=== PATIENT | female | born 1945 | race Caucasian/White ===

== ENCOUNTER 2019-03-24 05:55 | Inpatient (IN) ==
[2019-03-24] MEDS ORDERED: ASPIRIN PO ONE (06:06)
[2019-03-24] MEDS ORDERED: SOLU-MEDROL IV ONE (06:08)
[2019-03-24] MEDS ORDERED: CARDIZEM IV ONE (06:08)
[2019-03-24] MEDS ORDERED: ZOFRAN IV ONE (06:08)
[2019-03-24] MEDS ORDERED: DUONEB (A & A) INH ONE (06:08)
[2019-03-24] MEDS ORDERED: NITROGLYCERIN TOP ONE (06:08)
[2019-03-24] MEDS ORDERED: MORPHINE IV ONE (06:08)
--- NOTE | 2019-03-24 06:15 | PROVIDER DOCUMENTATION ---
HPI-Respiratory General - General Stated Complaint: SOB Time Seen by Provider: 03/24/19 05:57 Source: patient, family, EMS Allergies/Adverse Reactions: Patient Allergies Allergy/AdvReac Type Severity Reaction Status Date / Time No Known Allergies Allergy Verified 03/24/19 06:15 Home Medications: Home Medication List Medication Instructions Recorded Confirmed Last Taken Type Alendronate Sodium 1 tab PO DIRECTED 05/29/18 03/24/19 Unknown History Aspirin [Aspir-Low] 1 tab PO DAILY 05/29/18 03/24/19 Unknown History Atorvastatin Calcium [Lipitor] 1 tab PO QPM 05/29/18 03/24/19 Unknown History Calcium Polycarbophil [Fiber] 1,200 mg PO DAILY 05/29/18 03/24/19 Unknown Histo ry Cholecalciferol (Vitamin D3) 1 cap PO DAILY 05/29/18 03/24/19 Unknown History [Vitamin D3] Cinnamon Bark [Cinnamon] 1 cap PO DAILY 05/29/18 03/24/19 Unknown History Diltiazem HCl [Diltiazem 24Hr ER] 1 cap PO QAM 05/29/18 03/24/19 Unknown History Gemfibrozil [Lopid] 2 tab PO BID 05/29/18 03/24/19 Unknown History Losartan [Cozaar] 25 mg PO QPM 05/29/18 03/24/19 Unknown History Meloxicam 1 tab PO DAILY 05/29/18 03/24/19 Unknown History Metformin [Glucophage] 1 tab PO BID 05/29/18 03/24/19 Unknown History Om3/Dha/Epa/Cod Liver Oil/A/D3 1 cap PO DAILY 05/29/18 03/24/19 Unknown History [Cod Liver Oil Softgel] [place]-3 Acid Ethyl Esters 4 cap PO DAILY 05/29/18 03/24/19 Unknown History Pantoprazole [Protonix] 1 tab PO DAILY 05/29/18 03/24/19 Unknown History Trazodone [Desyrel] 1 - 2 tab PO QHS 05/29/18 03/24/19 Unknown History Cyanocobalamin (Vitamin B-12) 1,000 mcg PO DAILY 03/24/19 03/24/19 Unknown History [Vitamin B-12] Pramipexole [Mirapex] 0.25 mg PO DIRECTED 03/24/19 03/24/19 Unknown History Rivaroxaban [Xarelto] 20 mg PO HS 03/24/19 03/24/19 Unknown History Venlafaxine HCl [Venlafaxine HCl 150 mg PO DAILY 03/24/19 03/24/19 Unknown History ER] - History of Present Illness-Resp Nature of Presenting Problem: SOB for the last 1-2 days, gradually getting worse. has been sick for 1 month, seen by her doctor for pneumonia a few weeks ago, then went on a cruise to the [facility]. Over the last day or two she has had increasing shortness of breath, dyspnea on exertion, cough productive of yellow phlegm and orthopnea. No edema or weight gain. Last night she noted a severe, sharp, midsternal chest pain lasting a few minutes then went away. has Afib, on xarelto. Notes that she hit her right forearm on the cruise and suffered a very large hematoma with bruising from the xarelto. 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 States she has afib and COPD, but does not think she has CHF or heart problems. Denies fever/chills. No N/V/D. Quality of Pain: reports: sharp Severity in ED: reports: moderate Onset/Duration: reports: 2 days ago Timing: reports: still present, constant, changing over time, getting worse Context: reports: recent foreign travel, recent URI Exposure: reports: illness exposure Cough Quality/Degree: reports: moderate, productive cough Episode Frequency: rare episodes Current Respiratory Medication Therapy: Initiated albuterol Modifying Factors: improves with: albuterol inhaler, rest, sitting upright. worse with: exertion, coughing, deep breath, lying down Associated Symptoms: reports: chest pain/soreness, cough, headache, heart racing , shortness of breath, short of breath, sweaty, wheezing. denies: fever/chills, flu-like symptoms, hurts to breathe, hyperventilating, lightheadedness, muscle/bodyaches, nasal congestion, nasal drainage, sinus pain, sore throat Similar Symptoms Previously?: Yes Recently seen or treated by another doctor?: Yes (Dr. Babb) Review of Systems - Adult - REVIEW OF SYSTEMS - ADULT Constitutional: reports: no symptoms reported. denies: chills, fever Eyes: reports: no symptoms reported Ears, Nose, Mouth & Throat: reports: no symptoms reported Cardiovascular: reports: see HPI, chest pain, edema, irregular heart rate, orthopnea, palpitations. denies: heart murmur, poor circulation, PND, syncope Respiratory: reports: see HPI, cough, dyspnea on exertion, excessive sputum production, shortness of breath, wheezing. denies: chronic cough Gastrointestinal: reports: no symptoms reported Genitourinary: reports: no symptoms reported Musculoskeletal: reports: no symptoms reported Integumentary: reports: no symptoms reported Neurological: reports: no symptoms reported Psychiatric: reports: no symptoms reported Endocrine: reports: no symptoms reported Hematologic/Lymphatic: reports: no symptoms reported Allergic/Immunologic: reports: no symptoms reported All Other Systems: Reviewed and Negative Past History - Adult - PAST MEDICAL HISTORY-ADULT Review of Records: reports: Old Records Reviewed, Nursing Assessment Review, Medications Reviewed, Social history reviewed & non-contributory. Major Childhood Illnesses: reports: denies history Cardiovascular: reports: cardiac disease, A-Fib, HTN, hyperlipidemia Respiratory: reports: COPD Gastrointestinal: reports: denies history Obstetrical/Gynecological: reports: denies history Genitourinary: reports: denies history Musculoskeletal: reports: denies history Neurological: reports: denies history Endocrine/Immune: reports: Diabetes Diabetes Type: Type 2 Diabetes controlled by:: PO Meds Other Conditions: reports: denies history - PRIOR SURGERIES/PROCEDURES Surgical/Procedure History: reports: reviewed, not pertinent - IMMUNIZATION STATUS Childhood Immunizations: UTD Flu Vaccine: UTD - FAMILY HISTORY Family History: diabetes, CAD over 55 yo - SOCIAL HISTORY Smoking: quit greater than 1 year, cigarettes Substance Use: none/never Alcohol Use Frequency: rarely Living Situation: family Physical Exam-General - PHYSICAL EXAM-ADULT Initial Vital Signs Reviewed: Yes (tachycardic, tachypneic, otherwise normal) - CONSTITUTIONAL General Appearance: alert, mild distress, obese - EYES Eyes: PERRL/EOMI, pink conjunctivae - HEAD, EARS, NOSE, MOUTH & THROAT HENMT: normocephalic/atraumatic, moist mucous membranes, pharynx normal - NECK Neck: non-tender, full range of motion, supple, normal inspection. negative: meningismus - RESPIRATORY Respiratory: chest non-tender, no pleuratic chest pain, no accessory muscle use, respiratory distress (mild), decreased breath sounds, rhonchi, wheezing, dull on percussion, increased rate - CARDIOVASCULAR Cardiovascular: no edema, no JVD, no murmur, tachycardia, gallop/S3, irregularly irregular - GASTROINTESTINAL (ABDOMEN) Abdominal Exam: non tender, soft, no organomegaly, no pulsatile mass - LYMPHATIC Lymphatic: no adenopathy - MUSCULOSKELETAL Back Exam: normal inspection, no vertebral tenderness. negative: decreased range of motion Extremity: normal range of motion, non-tender, no calf tenderness, normal capillary refill, pedal edema. negative: no pedal edema Peripheral Pulses: radial (R): 2+, radial (L): 2+ - SKIN Integumentary: normal color, normal turgor, warm/dry - NEUROLOGIC Neurologic: heavy lift rigger II-XII nml as tested, grossly normal, no motor/sensory deficits - PSYCHIATRIC Psych/Mental Status: normal mood/affect, normal thought content, normal thought process, oriented x 3 - HEART Score HEART Score: History: Moderately Suspicious HEART Score: ECG: Non-Specific Repolarization Disturbance/LBBB/PM HEART Score: Age: > or = 65 Years HEART Score: Risk Factors for Atherosclerotic Disease: > or = 3 Risk Factors or History of Atherosclerotic Disease Progress - PLAN OF CARE/RESULTS Progress/Plan/Lab Results: Orders Category Date Time Status Admit - [facility] Routine AdmDCTranf 03/24/19 09:35 Active Activity - Up with Assistance ORDERED Care 03/24/19 09:35 Active Apply Mechanical Device [QM] EVERY SHIFT NURSING Care 03/24/19 09:35 Active Cardiac Monitoring DIRECTED Care 03/24/19 06:06 Completed Intake and Output-Strict Q 8-HR ASSESS Care 03/24/19 09:35 Active Oxygen Therapy- ED Nursing DIRECTED Care 03/24/19 06:06 Completed Saline Loc NOW Care 03/24/19 06:06 Completed Vital Signs Order Q 4-HR ASSESS Care 03/24/19 09:35 Completed Z-Document. for Tele Applied ORDERED Care 03/24/19 09:35 Completed Diabetic Diet Diet 03/24/19 09:35 Active CHEST-PORTABLE [RAD] Stat Exams 03/24/19 06:25 Completed ABG [RESP] Routine Lab 03/24/19 06:20 Completed BASIC METABOLIC PANEL [CHEM] Routine Lab 03/25/19 05:14 Completed BLOOD CULTURE [BLDCUL] Stat Lab 03/24/19 06:18 Results CBC WITH DIFF [HEME] Routine Lab 03/25/19 05:14 Completed CBC WITH ELECTRONIC DIFF [HEME] Stat Lab 03/24/19 06:09 Completed CK PROFILE [SP CHEM] Stat Lab 03/24/19 06:09 Completed COMPREHENSIVE METABOLIC PANEL [CHEM] Stat Lab 03/24/19 06:09 Completed INFLUENZA SCREEN A/B Stat Lab 03/24/19 05:59 Completed LACTATE, PLASMA [CHEM] Stat Lab 03/24/19 06:09 Completed MAGNESIUM [CHEM] Stat Lab 03/24/19 06:09 Completed PRO B-NATRIURETIC PEPTIDE Stat Lab 03/24/19 06:09 Completed PROTIME WITH INR [COAG] Stat Lab 03/24/19 06:09 Completed PTT [COAG] Stat Lab 03/24/19 06:09 Completed TROPONIN T HIGH SENSITIVITY Stat Lab 03/24/19 06:09 Completed TSH Stat Lab 03/24/19 06:09 Completed ATORVAstatin [Lipitor] Med 03/24/19 21:00 Active 80 mg PO QPM Acetaminophen [Tylenol] Med 03/24/19 09:35 Active 650 mg PO Q6H PRN PRN Albuterol 2.5MG/Ipratrop 0.5MG [Duoneb (A & A)] Med 03/24/19 06:08 Discontinued 3 ml INH NOW ONE Alendronate [Fosamax] Med 03/29/19 09:00 Active 70 mg PO Q7D Aspirin Med 03/24/19 06:06 Discontinued 325 mg PO NOW ONE Aspirin EC Med 03/24/19 09:35 Active 81 mg PO DAILY Calcium Polycarbophil [Fibercon] Med 03/24/19 09:35 Active 1,250 mg PO DAILY Cholecalciferol (Vit D3) [Vitamin D] Med 03/24/19 09:35 Active 5,000 unit PO DAILY Cyanocobalamin [Vitamin B-12] Med 03/24/19 09:35 Active 1,000 microgm PO DAILY Diltiazem C.d. [Cardizem Cd] Med 03/24/19 09:35 Discontinued 120 mg PO QAM Diltiazem [Cardizem] Med 03/24/19 06:08 Discontinued 20 mg IV NOW ONE Gemfibrozil [Lopid] Med 03/24/19 09:35 Active 1,200 mg PO BID Losartan [Cozaar] Med 03/24/19 21:00 Active 25 mg PO QPM Meloxicam [Mobic] Med 03/24/19 09:35 Active 15 mg PO DAILY Metformin [Glucophage] Med 03/24/19 09:35 Active 500 mg PO BID CC Methylprednisolone Sod Succ [Solu-Medrol] Med 03/24/19 06:08 Discontinued 125 mg IV NOW ONE Morphine Med 03/24/19 06:08 Discontinued 2 mg IV NOW ONE Nitroglycerin Med 03/24/19 06:08 Discontinued 0.5 inch TOP NOW ONE [place]-3 Fatty Acids [Fish Oil Concentrate] Med 03/24/19 09:35 Active 1,000 mg PO DAILY Ondansetron [Zofran] Med 03/24/19 06:08 Discontinued 4 mg IV NOW ONE Ondansetron [Zofran] Med 03/24/19 09:35 Active 4 mg IV Q4H PRN PRN Oseltamivir [Tamiflu] Med 03/24/19 07:06 Discontinued 75 mg .ROUTE .STK-MED ONE Oseltamivir [Tamiflu] Med 03/24/19 21:00 Active 75 mg PO BID Oseltamivir [Tamiflu] Med 03/24/19 07:00 Discontinued 75 mg PO NOW ONE Pantoprazole [Protonix] Med 03/24/19 09:35 Active 40 mg PO DAILY Patient's Own Med Med 03/24/19 09:35 Active 1 each PO DAILY Pramipexole [Mirapex] Med 03/24/19 21:00 Discontinued 0.25 mg PO HS Rivaroxaban [Xarelto] Med 03/24/19 09:35 Discontinued 20 mg PO DAILY Trazodone [Desyrel] Med 03/24/19 21:00 Active 50 mg PO QHS Venlafaxine E.r. [Effexor Xr] Med 03/24/19 09:35 Active 150 mg PO DAILY Aerosol Treatments Routine Oth 03/24/19 06:09 Completed Aerosol Treatments Stat Oth 03/24/19 06:09 Completed Oxygen Device Routine Oth 03/24/19 09:35 Completed Telemetry [OM.EQ] Routine Oth 03/24/19 09:35 Active EKG [EKG] Stat Ther 03/24/19 06:06 Draft Echo Spec/Color Doppler Routine Ther 03/24/19 09:35 Completed Transfer/Admit Order [TRANSFER] Routine Transfer 03/24/19 07:58 Completed Result Diagrams: 03/25/19 05:14 03/25/19 05:14 - REASSESSMENT Reassessment #1 Time Reassessed: 06:30 Status: improving (HR 100 after cardizem, given duoneb, ASa, morphine/zofran, nitropaste, solumedrol.) - EKG 1 Time of EKG reading by physician:: 06:03 EKG Read and Signed by:: José Frank EKG Interpretation (*Must complete 3 of following elements*): Abnormal Rate: 119 Rhythm: AFIB with RVR Chloe: normal QRS: Q Waves present (Anteriorly), poor R wave progression ST Wave: normal Comments: No STEMI - CHANGE OF SHIFT REPORT (ED Provider) 1 Report Given and Care Transferred to:: Dr. Gunter Time of Transfer: 07:00 Items Pending: Labs Departure - Departure Date of Disposition Decision: 03/25/19 Time of Disposition Decision: 08:00 DIAGNOSIS: Atrial fibrillation with RVR, COPD with exacerbation, Influenza A Disposition: ADMITTED INPATIENT 09 Certified Medical Emergency: Emergent Condition: Fair - Critical Care Note This patient required my direct & personal management of CC.: Yes Total Time (mins): 45 Critical Care Statement: This patient required my direct personal management to treat or rule out processes, the absence of which, could potentiallly result in sudden, clinically significant life or limb threatening deterioration. Attestation - Physician/ NICOLE Attestation Patient care was provided by Advanced Practice Provider:: No The physician spent face to face time with patient:: Yes Advanced Practice Provider documentation review:: Supervising physician onsite and consulted in the evaluation and care of this patient. The physician did have a face to face encounter with the patient.
[2019-03-24 06:29] LABS: ALLEN TEST YES; BE 1.3 mmoll (-3.0-3.0); BLOOD TYPE ARTERIAL; HCO3-(ACT) 25.9 mmoll (20.0-26.0); METHB 0.8 % (0.0-1.5); O2(CT) 14.2 mL/dL (15.0-23.0); O2HB 96.7 % (95.0-99.0); PCO2(98.6) 33 mmHg (35-45); PO2(98.6) 186 mmHg (60-100); SAMPLE BLOOD; SAO2 99.4 % (95.0-100.0); THB 10.1 g/dL (11.5-17.4); pH(98.6) 7.48 (7.35-7.45)
[2019-03-24 06:30] LABS: MODALITY CANNULA
[2019-03-24 06:54] LABS: BASO# 0.04 X1000 (0.0-0.2); BASO% 0.3 % (0.0-0.8); EOS# 0.51 X1000 (0.0-0.7); EOS% 4.2 % (0.0-10.0); HEMATOCRIT 34.6 % (37.0-47.0); IMM GRAN# 0.05 X1000 (0.0-0.04); IMM GRAN% 0.4 % (0.0-0.5); LYMPH# 1.73 X1000 (1.2-3.4); LYMPH% 14.3 % (20.5-51.1); MCH 22.6 PG (27-31); MCHC 28.9 g/dL (33-37); MCV 78.1 FL (81-99); MONO# 2.08 X1000 (0.11-0.59); MONO% 17.2 % (1.7-9.3); MPV 9.7 FL (7.4-10.4); NEUT% 63.6 % (42.2-75.2); PLT 319 X1000 (130-400); RBC 4.43 XMIL (4.2-5.4); RDW 18.4 % (11.5-14.5); WBC 12.11 X1000 (4.8-10.8)
--- NOTE | 2019-03-24 06:54 | EKG Report ---
Test Performed on : 03/24/2019 06:03:17 AM Test Reason : afib Blood Pressure : / mmHG Vent. Rate : 119 BPM Atrial Rate : 067 BPM P-R Int : 000 ms QRS Dur : 082 ms QT Int : 312 ms P-R-T Axes : 000 061 082 degrees QTc Int : 438 ms Atrial fibrillation. with rapid ventricular response. Abnormal ECG No previous ECGs available Unconfirmed Result
--- NOTE | 2019-03-24 06:59 | Diag Imaging Result Doc PS360 ---
EXAM: CHEST-PORTABLE HISTORY: sob TECHNIQUE: Single view COMPARISON: None. FINDINGS: The lungs are well expanded. The heart is not enlarged. The vessels are not distended. There are no infiltrates. No effusion identified. IMPRESSION: Negative exam. Electronically signed by Mario Bentley 03/24/2019 6:57 AM
[2019-03-24] MEDS ORDERED: TAMIFLU PO ONE (07:00)
[2019-03-24] MEDS ORDERED: TAMIFLU ONE (07:06)
[2019-03-24 07:08] LABS: INR 1.84; PROTIME 21.7 Seconds (11.0-16.0)
[2019-03-24 07:23] LABS: AGAP 13; ALB/GLOB RATIO 1.2; ALKALINE PHOSPHATASE 63 U/L (32-104); BUN 9 mg/dL (8-22); CALCIUM 8.6 mg/dL (8.8-10.2); CHLORIDE 103 mmol/L (98-107); CK PROFILE 123 U/L (24-173); COSMO 277; CREATININE 0.7 mg/dL (0.5-0.9); ESTIMATED GFR > 60; GLUCOSE 121 mg/dL (70-104); GOT 24 U/L (10-30); GPT 16 U/L (10-36); MAGNESIUM 1.9 mg/dL (1.5-2.7); POTASSIUM 3.9 mmol/L (3.5-5.1); SODIUM 139 mmol/L (136-145); TCO2 23 mmol/L (25-35); TOTAL BILIRUBIN 0.48 mg/dL (0.20-1.00); TOTAL PROTEIN 7.3 g/dL (6.3-8.3)
[2019-03-24 09:01] LABS: URINE SOURCE CLEAN CATCH
[2019-03-24 09:05] LABS: BILIRUBIN URINE NEGATIVE (NEGATIVE); BLOOD URINE NEGATIVE (NEGATIVE); COLOR YELLOW; GLUCOSE URINE NEGATIVE (NEGATIVE); KETONE URINE NEGATIVE (NEGATIVE); LEUKOCYTES URINE LARGE (NEGATIVE); NITRITE URINE NEGATIVE (NEGATIVE); PROTEIN URINE NEGATIVE (NEGATIVE); SP GRAVITY URINE 1.009; TURBIDITY URINE HAZY (CLEAR); UROBILINOGEN URINE NORMAL (NORMAL)
[2019-03-24 09:06] LABS: UR EPITHELIAL CELLS <10 /HPF (<10); URINE BACTERIA 4+ /HPF; URINE RBC <10 /HPF (<10); URINE WBC TNTC /HPF (<10)
[2019-03-24] MEDS ORDERED: CARDIZEM CD PO SCH (09:35)
[2019-03-24] MEDS ORDERED: XARELTO PO SCH (09:35)
[2019-03-24] MEDS ORDERED: OMEGA ACID ETHYL ESTERS PO SCH (09:35)
[2019-03-24] MEDS ORDERED: TYLENOL PO PRN (09:35)
--- NOTE | 2019-03-24 10:29 | HISTORY AND PHYSICAL ---
PRIMARY CARE PHYSICIAN: Dr. Bjorn Babb in [place], [place]. CHIEF COMPLAINT: Shortness of breath over the last 2 days that has gradually gotten worse. HISTORY OF PRESENT ILLNESS: States that she was seen by her doctor about 3 weeks ago and diagnosed with a pneumonia and placed on an antibiotic. Then, she went on a cruise to the [facility], returned on Wednesday and then over this past few days since returning she has felt dyspnea on exertion, a productive cough of yellow phlegm, shortness of breath, orthopnea, denied any fever, has had some chills. She has a history of atrial fibrillation and is on Cardizem and Xarelto. She is noted to have hit her right forearm on a door while she was on the cruise and she has a very large hematoma with bruising noted to her right forearm. Workup in the emergency room showed an EKG with atrial fibrillation with RVR at 119. Her influenza type A was positive, B was negative. Her chest x-ray was a negative exam. She is noted to be wheezing throughout entire lung thomas and does have a history of COPD as well, but she is saturating 95% on room air, was placed on nasal cannula and saturating 95%-97% on 2 L. She in the emergency room was given a dose of her Tamiflu 75 mg p.o. x1. She was given Solu-Medrol 125 mg IV x1. She was given Cardizem 20 mg IV x1, aspirin 325 mg p.o. x1, DuoNeb x1, nitroglycerin 0.5 inch topically x1. We will admit her to the PVC unit for further evaluation and treatment. PAST MEDICAL HISTORY: Atrial fibrillation, COPD, hypertension, hyperlipidemia, diabetes type 2. PAST SURGICAL HISTORY: and hysterectomy. FAMILY HISTORY: Diabetes and coronary artery disease. SOCIAL HISTORY: She currently lives with family, is a former smoker and denies any alcohol or illicit drug use. ALLERGIES: She has no known drug allergies. HOME MEDICATIONS: She takes alendronate sodium 70 mg 1 time a week, aspirin 81 mg p.o. daily, atorvastatin 80 mg p.o. q.p.m., fiber 1200 mg p.o. daily, vitamin D3 of 5000 units p.o. daily, cinnamon bark 500 mg p.o. daily, vitamin B12 of 1000 mcg p.o. daily, Cardizem 120 mg p.o. q.a.m., gemfibrozil 600 mg 2 tablets p.o. b.i.d., losartan 25 mg p.o. q.p.m., meloxicam 15 mg p.o. daily, metformin 500 mg p.o. b.i.d., cod liver oil softgel 1 p.o. daily, [place]-3 acid 1 g 4 capsules p.o. daily, pantoprazole 40 mg p.o. daily, Mirapex 0.25 mg take half a tablet p.o. at bedtime for 3 to 5 days then increase to 1 tablet p.o. at bedtime, Xarelto 20 mg p.o. daily, trazodone 50 mg p.o. at bedtime, venlafaxine 150 mg p.o. daily. LABORATORY DATA: White blood cell count of 12.11, hemoglobin 10, hematocrit 34.6, platelets 319,000. PT and INR of 21.7 and 1.84. ABG with a pH of 7.48, pCO2 33, pO2 186, bicarbonate 25.9, and this was on 2 L via nasal cannula. Sodium 139, potassium 3.9, chloride 103 CO2 23, BUN of 9, creatinine 0.7, glucose 121, magnesium 1.9. ProBNP of 401. Plasma lactate of 1.2. TSH of 0.97. Chest x-ray showed a negative exam. EKG showed atrial fibrillation with RVR at 119. REVIEW OF SYSTEMS: She denied any fever. She has had some chills. Denied any blurred vision, dizziness, chest pain. She had shortness of breath, dyspnea on exertion, productive cough of yellow phlegm and some orthopnea. Denied any abdominal pain, constipation, diarrhea, burning or hurting with urination. PHYSICAL EXAMINATION: VITAL SIGNS: On arrival she had a temperature of 98.5 degrees, pulse was 113, respirations 20, blood pressure 139/76, saturating 95% on room air. GENERAL: This is a 73-year-old female who is lying in the bed and answers questions appropriately. HEEMNT: Normocephalic, atraumatic. Normal ENT inspection. Oropharynx and nares are clear. EYES: Pupils are equal, round, reactive to light and accommodation. Extraocular movements are intact. NECK: Normal inspection, normal range of motion. LUNGS: With wheezing throughout entire posterior lung thomas. Equal lung expansion. Chest wall movement noted. Oxygen via nasal cannula currently in use. HEART: Irregular rate and rhythm. No murmurs, rubs, or gallops. ABDOMEN: Soft, nontender, nondistended. Bowel sounds are present x4 quadrants. SKIN: Patient is noted to have a large hematoma and bruising, dark purple, to her right forearm where she hit a door while she was on the cruise and is currently on Xarelto. EXTREMITIES: She has 5/5 strength x4 extremities. NEUROLOGICAL: The cranial nerves 2-12 appear grossly intact. ASSESSMENT: 1. Atrial fibrillation with rapid ventricular response. 2. Influenza A positive. 3. Leukocytosis. 4. An acute chronic obstructive pulmonary disease exacerbation. 5. Diabetes type 2. PLAN: She will be admitted to the PVC unit. Placed on telemetry, diabetic diet, O2 per protocol. We will place on droplet isolation for her flu A positive. Continue her home medications. We will check an echocardiogram today. I think most likely she was a little elevated due to the COPD exacerbation and the flu. We will place her on Rocephin 1 g IV q.24. Going to do half-strength Xopenex q.8 hours. Recheck CBC, BMP in the a.m. Further orders after seen by attending. Dictated by RENNY Acosta for Marquis Calderon MD Addendum: Patient seen and examined by myself. Agree with RENNY note. It reflects my assessment and plan. Patient is being admitted to hospital for chronic atrial fibrillation with elevated heart rate. Will adjust dosis of Cardizem and monitor her on PVC> cc: RENNY Barnes MD [facility]ALS[facility]da
[2019-03-24] MEDS: EFFEXOR XR PO SCH (10:45)
[2019-03-24] MEDS: GLUCOPHAGE PO SCH ×2 (10:45→16:17)
[2019-03-24] MEDS: VITAMIN D PO SCH (10:47)
[2019-03-24] MEDS: VITAMIN B-12 PO SCH (10:47)
[2019-03-24] MEDS: MOBIC PO SCH (10:48)
[2019-03-24] MEDS: ROCEPHIN 1 GM in NS 50 ML IV SCH (10:48)
[2019-03-24] MEDS: LOPID PO SCH ×2 (10:49→22:27)
[2019-03-24] MEDS: PROTONIX PO SCH (10:50)
[2019-03-24] MEDS: FISH OIL CONCENTRATE PO SCH (10:50)
[2019-03-24] MEDS: ASPIRIN EC PO SCH (10:51)
[2019-03-24] MEDS: FIBERCON PO SCH (10:51)
[2019-03-24] MEDS: PATIENT'S OWN MED PO SCH (10:51)
[2019-03-24] MEDS: XOPENEX NEB INH SCH (16:09)
--- NOTE | 2019-03-24 18:22 | ECHO REPORT ---
ORDER DATE: 03/24/2019 INTERPRETING PHYSICIAN: Lenny Wisdom MD INDICATION: Atrial fibrillation with rapid response, COPD, hypertension, and diabetes. M-MODE MEASUREMENTS: Left ventricle end diastole: 4.3 cm. Left ventricle end systole: 3.4 cm. Posterior wall: 1.2 cm. Interventricular septum: 1.2 cm. Left atrium: 3.7 cm. Aortic diameter: 3.5 cm. SUMMARY OF 2-DIMENSIONAL IMAGIN. Left ventricular systolic function is normal. Ejection fraction is 62%. There is no wall motion abnormality noted. The right ventricle appears to be normal. The left atrium is mildly enlarged. 2. The mitral valve looks normal. The mitral valve shows very mild degree of regurgitation. 3. The aortic valve shows mild degree of sclerosis of the cusps. The patient is tachycardic. 4. Pulse wave Doppler of mitral inflow shows a single filling wave. 5. The tricuspid valve also shows mild degree of regurgitation. 6. Pulmonary pressure is somewhere in the range of 25 to 30 mmHg. 7. There is no pericardial effusion. 8. The pulmonic valve is unremarkable. Clinical correlation is recommended. cc: MD Ivette Morris CRNP
[2019-03-24] MEDS ORDERED: MIRAPEX PO SCH (21:00)
[2019-03-24] MEDS: COZAAR PO SCH (22:25)
[2019-03-24] MEDS: LIPITOR PO SCH (22:25)
[2019-03-24] MEDS: MIRAPEX PO SCH (22:26)
[2019-03-24] MEDS: XARELTO PO SCH (22:26)
[2019-03-24] MEDS: DESYREL PO SCH (22:26)
[2019-03-24] MEDS: TAMIFLU PO SCH (22:27)
[2019-03-25] MEDS: XOPENEX NEB INH SCH ×4 (00:07→23:07)
[2019-03-25] MEDS: NS NEB INH SCH ×3 (00:08→16:08)
[2019-03-25] MEDS: TESSALON PO PRN ×3 (04:53→21:53)
[2019-03-25 06:07] LABS: BASO# 0.01 X1000 (0.0-0.2); BASO% 0.1 % (0.0-0.8); EOS# 0.01 X1000 (0.0-0.7); EOS% 0.1 % (0.0-10.0); HEMATOCRIT 33.3 % (37.0-47.0); HEMOGLOBIN 9.4 g/dL (12.0-16.0); IMM GRAN# 0.08 X1000 (0.0-0.04); IMM GRAN% 0.5 % (0.0-0.5); LYMPH# 1.49 X1000 (1.2-3.4); LYMPH% 9.7 % (20.5-51.1); MCH 22.4 PG (27-31); MCHC 28.2 g/dL (33-37); MCV 79.3 FL (81-99); MONO# 1.45 X1000 (0.11-0.59); MONO% 9.5 % (1.7-9.3); NEUT% 80.1 % (42.2-75.2); PLT 331 X1000 (130-400); RDW 18.1 % (11.5-14.5); WBC 15.34 X1000 (4.8-10.8)
[2019-03-25 06:37] LABS: AGAP 13; BUN 21 mg/dL (8-22); CALCIUM 9.2 mg/dL (8.8-10.2); CHLORIDE 102 mmol/L (98-107); COSMO 284; CREATININE 0.9 mg/dL (0.5-0.9); ESTIMATED GFR > 60; GLUCOSE 153 mg/dL (70-104); POTASSIUM 4.4 mmol/L (3.5-5.1); SODIUM 139 mmol/L (136-145); TCO2 24 mmol/L (25-35)
[2019-03-25] MEDS: FISH OIL CONCENTRATE PO SCH (08:29)
[2019-03-25] MEDS: MOBIC PO SCH (08:30)
[2019-03-25] MEDS: EFFEXOR XR PO SCH (08:30)
[2019-03-25] MEDS: VITAMIN D PO SCH (08:30)
[2019-03-25] MEDS: FIBERCON PO SCH (08:31)
[2019-03-25] MEDS: LOPID PO SCH ×2 (08:32→21:53)
[2019-03-25] MEDS: PROTONIX PO SCH (08:32)
[2019-03-25] MEDS: TAMIFLU PO SCH ×2 (08:33→21:52)
[2019-03-25] MEDS: PATIENT'S OWN MED PO SCH (08:33)
[2019-03-25] MEDS: VITAMIN B-12 PO SCH (08:33)
[2019-03-25] MEDS: GLUCOPHAGE PO SCH ×2 (08:34→16:59)
[2019-03-25] MEDS: ASPIRIN EC PO SCH (08:34)
[2019-03-25] MEDS: CARDIZEM CD PO SCH (08:44)
[2019-03-25] MEDS: ROCEPHIN 1 GM in NS 50 ML IV SCH (10:44)
--- NOTE | 2019-03-25 12:54 | PROGRESS NOTE ---
DATE: 03/25/2019 SUBJECTIVE: Patient reports feeling fine. No nausea or palpitations noted. Heart rate has been noted to be in the 110s and 130. The patient has been asymptomatic. OBJECTIVE: Vital Signs: Temperature 97.9 degrees, heart rate 131, respiratory 19, blood pressure 95/66, O2 saturation 97% on 4 L nasal cannula. General Examination: This is a 73-year-old, female lying in bed, in no acute distress. Cardiovascular: S1, S2 heard, irregularly irregular. Tachycardic, but no murmurs, gallops, or rubs. Respiratory Exam: Wheezing in both pulmonary thomas. Patient not using any accessory muscles or having work of breathing. Abdomen: Soft, nontender to palpation. Bowel sounds present. No organomegaly. Extremities: No clubbing, cyanosis, or edema. Peripheral pulses present in both legs. Neurological: The patient is alert, oriented x3. Moves 4 extremities. LABORATORY DATA: Reviewed. ASSESSMENT AND PLAN: 1. Atrial fibrillation with rapid ventricular response. The patient is known to have atrial fibrillation. We are going to increase the dose of Cardizem CD from 120 to 180. We will see how she does. We will continue to monitor this patient in the PVC unit. 2. Influenza positive. We will continue with Tamiflu. 3. Chronic obstructive pulmonary disease exacerbation. We will continue to provide Xopenex for this patient. 4. Diabetes mellitus type 2. We will continue with sliding scale insulin and Accu-Chek before meals and also at bedtime. cc: Marquis Calderon MD
[2019-03-25] MEDS: XARELTO PO SCH (21:53)
[2019-03-25] MEDS: DESYREL PO SCH (21:54)
[2019-03-25] MEDS: LIPITOR PO SCH (21:54)
[2019-03-25] MEDS: COZAAR PO SCH (21:54)
[2019-03-25] MEDS: MIRAPEX PO SCH (21:55)
[2019-03-26] MEDS ORDERED: DUONEB (A & A) INH PRN (01:52)
[2019-03-26] MEDS: DUONEB (A & A) INH SCH ×6 (02:30→22:59)
[2019-03-26] MEDS: VITAMIN D PO SCH (08:49)
[2019-03-26] MEDS: ASPIRIN EC PO SCH (08:49)
[2019-03-26] MEDS: VITAMIN B-12 PO SCH (08:50)
[2019-03-26] MEDS: CARDIZEM CD PO SCH (08:50)
[2019-03-26] MEDS: LOPID PO SCH ×2 (08:50→22:00)
[2019-03-26] MEDS: EFFEXOR XR PO SCH (08:50)
[2019-03-26] MEDS: GLUCOPHAGE PO SCH ×2 (08:50→16:55)
[2019-03-26] MEDS: MOBIC PO SCH (08:50)
[2019-03-26] MEDS: FIBERCON PO SCH (08:51)
[2019-03-26] MEDS: TAMIFLU PO SCH ×2 (08:51→22:00)
[2019-03-26] MEDS: PATIENT'S OWN MED PO SCH (08:51)
[2019-03-26] MEDS: ROCEPHIN 1 GM in NS 50 ML IV SCH (08:51)
[2019-03-26] MEDS: PROTONIX PO SCH (08:51)
[2019-03-26] MEDS: FISH OIL CONCENTRATE PO SCH (08:52)
--- NOTE | 2019-03-26 09:12 | PROGRESS NOTE ---
DATE: 03/26/2019 SUBJECTIVE: Patient reports this morning some sensation of pressure in the suprasternal area that she did not notice at admission. No palpitations. OBJECTIVE: Vital Signs: Temperature 97.9, heart rate 101, respiratory rate 20, blood pressure 116/71, O2 saturation 98% 2 L nasal cannula. General: This is a 73-year-old female lying in bed, in no acute distress. Cardiovascular: S1, S2 heard. Irregularly irregular and tachycardic. No murmurs, gallops, or rubs noted. Respiratory: Wheezing in both pulmonary thomas. Patient is not using any accessory muscles or having work of breathing. Abdomen: Soft, nontender to palpation. Bowel sounds present. No organomegaly. Extremities: No clubbing, cyanosis, or edema. Peripheral pulses present in both legs. Neurological: Patient is alert and oriented x3. Moves 4 extremities. LABORATORY DATA: Reviewed. ASSESSMENT AND PLAN: 1. Atrial fibrillation with rapid ventricular response. We will continue with Cardizem CD 180 mg p.o. daily. Heart rate is well controlled. We will continue to monitor. 2. Chest pressure/chest pain. At this point, we are going to check echocardiogram, CT of the chest, troponins and EKG. We will continue to monitor. 3. Chronic obstructive pulmonary disease exacerbation. We will continue to provide Xopenex for this patient. 4. Diabetes mellitus type 2. We will continue with sliding scale insulin. Accu-Chek before meals and also at bedtime. 5. We will continue to monitor this patient closely. cc: Marquis Calderon MD
[2019-03-26] MEDS: TUSSIONEX LIQUID PO PRN ×2 (11:53→23:45)
--- NOTE | 2019-03-26 17:05 | EKG Report ---
Test Performed on : 03/26/2019 11:57:01 AM Test Reason : chest pressure Blood Pressure : / mmHG Vent. Rate : 095 BPM Atrial Rate : 107 BPM P-R Int : 000 ms QRS Dur : 082 ms QT Int : 348 ms P-R-T Axes : 000 036 072 degrees QTc Int : 437 ms Atrial fibrillation. Abnormal ECG When compared with ECG of 24-MAR-2019 06:03, (Unconfirmed) No significant change was found Confirmed by Jefe THOMAS, Arash Cedeño ([id number]) on 03/26/2019 10:27:00 PM
--- NOTE | 2019-03-26 18:37 | Diag Imaging Result Doc PS360 ---
EXAM: CT THORAX W/CONTRAST 03/26/2019 HISTORY: acute resp failure TECHNIQUE: This exam was performed using automated exposure control, adjustment of mA or kV according to patient size, and/or use of iterative reconstruction technique. COMMENT: The thyroid gland is inhomogeneous with multiple nodules. There are no previous thoracic studies available for comparison. There are calcifications in the thoracic aorta but no evidence of aneurysm or dissection is present. There is extensive coronary calcification. There are platelike opacities in both lung bases particularly the right lower lobe. Compared to the previous abdominal study of 05/29/2018 the opacity in the left lower lobe has improved in the right lower lobe opacity is worse. There are no acute bony abnormalities. There is a fair amount of stool in the visualized portion of the colon. The gallbladder is slightly distended. There is a precarinal node measuring over 15 mm. Smaller aorticopulmonary window and right hilar nodes are present. IMPRESSION: Worsened right lower lobe atelectasis. Left lower lobe fibrotic scars. Other nonacute findings as described above. Electronically signed by Seng Lagunas 03/26/2019 6:35 PM
[2019-03-26] MEDS: LIPITOR PO SCH (22:00)
[2019-03-26] MEDS: MIRAPEX PO SCH (22:01)
[2019-03-26] MEDS: XARELTO PO SCH (22:01)
[2019-03-26] MEDS: COZAAR PO SCH (22:01)
[2019-03-26] MEDS: DESYREL PO SCH (22:01)
[2019-03-27] MEDS: DUONEB (A & A) INH SCH ×6 (03:28→23:45)
--- NOTE | 2019-03-27 08:09 | PROGRESS NOTE ---
DATE: 03/27/2019 SUBJECTIVE: The patient reports no chest pain, no chest pressure. She is breathing better today. OBJECTIVE: Vital Signs: Temperature 98.1 degrees, heart rate 117, respiratory rate 17, blood pressure 121/84, O2 saturation 98% on 2 L nasal cannula. General Examination: This is a 73-year- old, female lying in bed, in no acute distress. Cardiovascular Examination: S1 and S2 heard. Irregularly irregular but no murmurs, gallops, or rubs. Respiratory Examination: Minimal wheezing noted in both pulmonary thomas. Patient is not using any accessory muscles or having work of breathing. Abdomen: Soft, nontender to palpation. Bowel sounds present. No organomegaly. Extremities: No clubbing, cyanosis, or edema. Peripheral pulses present in both legs. Neurological Examination: The patient is alert and oriented x3. Moves 4 extremities. Laboratory Data: There are no labs from today. ASSESSMENT AND PLAN: 1. Atrial fibrillation with rapid ventricular rate. Patient was admitted to the hospital because of this condition. She has been on Cardizem CD 120 mg. We have increased it to 180 mg by mouth daily. Heart rate is still getting higher, in the range of 130s to 140s. At this point, I prefer to go ahead and add Coreg 6.25 by mouth twice a day to her current treatment. We will continue to monitor. 2. Right lower lobe pneumonia. Even though the report from the CT shows atelectasis and/or pneumonia, but the fact that she has been having more yellowish cough and recently more chest discomfort, I prefer to go ahead and start antibiotics on this patient. We will start Levaquin 750 mg intravenous every 24 hours. We will continue with the same management. 3. Chronic obstructive pulmonary disease exacerbation. We will continue with Xopenex every 6 hours. 4. Diabetes mellitus type 2. We will continue with sliding scale insulin. Accu-Chek before meals and also at bedtime. 5. Physical deconditioning. Patient reports feeling weak so physical therapy an occupational therapy have been consulted. The patient is going to a rehab facility. We will call social media senior associate and we will go from there. cc: Marquis Calderon MD
[2019-03-27] MEDS: PROTONIX PO SCH (08:49)
[2019-03-27] MEDS: FIBERCON PO SCH (08:49)
[2019-03-27] MEDS: GLUCOPHAGE PO SCH ×2 (08:49→17:37)
[2019-03-27] MEDS: VITAMIN D PO SCH (08:49)
[2019-03-27] MEDS: VITAMIN B-12 PO SCH (08:49)
[2019-03-27] MEDS: MOBIC PO SCH (08:49)
[2019-03-27] MEDS: ASPIRIN EC PO SCH (08:50)
[2019-03-27] MEDS: CARDIZEM CD PO SCH (08:50)
[2019-03-27] MEDS: COREG PO SCH ×2 (08:50→20:34)
[2019-03-27] MEDS: ROCEPHIN 1 GM in NS 50 ML IV SCH (08:50)
[2019-03-27] MEDS: FISH OIL CONCENTRATE PO SCH (08:50)
[2019-03-27] MEDS: EFFEXOR XR PO SCH (08:50)
[2019-03-27] MEDS: LOPID PO SCH ×2 (08:50→20:34)
[2019-03-27] MEDS: LEVAQUIN 750 MG/D5W 750 MG/150 ML IVPB IV SCH (08:51)
[2019-03-27] MEDS: TAMIFLU PO SCH ×2 (08:51→20:33)
[2019-03-27] MEDS: ZOFRAN IV PRN (11:42)
[2019-03-27] MEDS: PATIENT'S OWN MED PO SCH (15:56)
--- NOTE | 2019-03-27 18:53 | CONSULTATION ---
DATE OF CONSULTATION: 03/27/2019 IMPRESSION: 1. Chronic atrial fibrillation with elevation in heart rate in the midst of acute respiratory illness. Heart rate now better controlled with addition of beta tata. 2. Acute respiratory infectious process superimposed on chronic obstructive pulmonary disease with associated prominent wheezing shortness of breath. 3. Influenza A positive. 4. Hypertension. 5. Hyperlipidemia. 6. Type 2 diabetes mellitus. RECOMMENDATIONS: 1. Continue to treat for acute respiratory also as you are doing. 2. Agree with addition of beta-tata to improve heart rate control. 3. Continue long-term anticoagulation with Xarelto. HISTORY: This 73-year-old, white female with past history of COPD, chronic atrial fibrillation, hypertension, obesity, type 2 diabetes mellitus, and hyperlipidemia was admitted with progressive dyspnea over the last several days that has gotten worse. She has been found to have acute respiratory illness superimposed on her COPD. Despite her usual rate control medications she has had some tendency for tachycardia in response to her atrial fibrillation. Beta-tata has been added and heart rate has come under better control. Cardiology was consulted in regards to her atrial fibrillation. She recently went on a cruise to the [facility] and returned this past week. Over the last several days she has developed exertional shortness of breath and cough productive of yellow sputum. There has been no chest pain. She has not been aware of any fever. When she presented, she had prominent wheezes diffusely and is being treated with antibiotics and bronchodilator therapy. She relates that she has been aware of atrial fibrillation for about 2 years and has been managed with rate control and anticoagulation with Xarelto. There have been no bleeding issues with relative. PAST MEDICAL HISTORY: 1. Chronic obstructive pulmonary disease. 2. Chronic atrial fibrillation. 3. Hypertension. 4. Hyperlipidemia. 5. Type 2 diabetes mellitus. PAST SURGICAL HISTORY: section and hysterectomy. ALLERGIES: She has no known drug allergies. MEDICATIONS PRIOR TO ADMISSION: As listed. SOCIAL HISTORY: She has a history of smoking 1/2 pack of cigarettes per day, but discontinued this about 14 years ago. She does not use alcohol. She lives by herself but family is nearby. FAMILY HISTORY: Positive for diabetes mellitus and coronary artery disease. REVIEW OF SYSTEMS: Pulmonary: Noteworthy for dyspnea and productive cough. Gastrointestinal: Noncontributory. Constitutional: Noncontributory. Remainder of review of systems negative/noncontributory with 14 total systems reviewed. PHYSICAL EXAMINATION: General: This is an obese, older white female in no distress on supplemental oxygen per nasal cannula. Vital signs: Blood pressure 136/72, heart rate 93 and irregular with ECG monitor showing atrial fibrillation. Oxygen saturation 94% on nasal cannula oxygen at 2 L/minute. HEENT: Extraocular movements intact. Mucous membranes are moist. Neck: Supple without jugular venous distention. There are no carotid bruits. Chest: Auscultation of the chest reveals prominent expiratory wheezes bilaterally. Cardiac: Exam reveals a irregular rate and rhythm without appreciable murmur or gallop. Abdomen: Soft. Bowel sounds are normal. Extremities: Without edema. Neurologic: Reveals her to be alert and fully oriented. Speech is fluent. Moves all 4 extremities equally well. Skin: Warm and dry. Psychiatric: Reveals her mood to be appropriate. PERTINENT DATA: Twelve lead EKG demonstrates atrial fibrillation with heart rate of 119 beats per minute. LABORATORY DATA: Includes white blood cell count 15.34, hematocrit 33.3, hemoglobin 9.4, platelet count 331,000. Sodium 139, potassium 4.4, chloride 102, carbon dioxide 24, BUN 21, creatinine 0.9, glucose 153. Initial troponin T high sensitivity 10 followup troponin sensitivity 9. Pro B natriuretic peptide level 401. TSH 0.97. Echocardiography report indicates estimated left ejection fraction of 60% to 65% without wall motion abnormality. Left atrium, mildly enlarged. Very mild mitral regurgitation demonstrated. There was mild aortic valve sclerosis without stenosis. Mild tricuspid regurgitation demonstrated. Estimated systolic PA pressure 25 to 30 mmHg. cc: Nishant Hendricks MD
[2019-03-27] MEDS: COZAAR PO SCH (20:33)
[2019-03-27] MEDS: MIRAPEX PO SCH (20:34)
[2019-03-27] MEDS: XARELTO PO SCH (20:34)
[2019-03-27] MEDS: LIPITOR PO SCH (20:34)
[2019-03-27] MEDS: DESYREL PO SCH (20:35)
[2019-03-28] MEDS: DUONEB (A & A) INH SCH ×6 (03:46→23:30)
[2019-03-28 06:30] LABS: BASO# 0.11 X1000 (0.0-0.2); EOS# 0.45 X1000 (0.0-0.7); EOS% 4.1 % (0.0-10.0); HEMATOCRIT 36.9 % (37.0-47.0); HEMOGLOBIN 10.3 g/dL (12.0-16.0); IMM GRAN# 0.09 X1000 (0.0-0.04); IMM GRAN% 0.8 % (0.0-0.5); LYMPH# 2.79 X1000 (1.2-3.4); LYMPH% 25.7 % (20.5-51.1); MCHC 27.9 g/dL (33-37); MCV 78.8 FL (81-99); MONO# 1.44 X1000 (0.11-0.59); MONO% 13.2 % (1.7-9.3); MPV 9.9 FL (7.4-10.4); NEUT# 5.99 X1000 (1.4-6.5); NEUT% 55.2 % (42.2-75.2); PLT 391 X1000 (130-400); RBC 4.68 XMIL (4.2-5.4); RDW 18.7 % (11.5-14.5); WBC 10.87 X1000 (4.8-10.8)
[2019-03-28 06:37] LABS: AGAP 12; ALBUMIN 3.8 g/dL (3.5-5.0); BUN 18 mg/dL (8-22); CHLORIDE 96 mmol/L (98-107); COSMO 275; CREATININE 0.9 mg/dL (0.5-0.9); ESTIMATED GFR > 60; GLUCOSE 128 mg/dL (70-104); PHOSPHORUS 3.8 mg/dL (2.7-4.5); POTASSIUM 5.1 mmol/L (3.5-5.1); SODIUM 136 mmol/L (136-145); TCO2 28 mmol/L (25-35)
--- NOTE | 2019-03-28 06:53 | PROGRESS NOTE ---
DATE: 03/28/2019 SUBJECTIVE: Patient reports still having some cough but no pressure, no chest pain. She is breathing better today. OBJECTIVE: Vital Signs: Temperature 98.0 degrees, heart rate 97, respiratory rate 16, blood pressure 93/60, O2 saturation 96% on 2 L nasal cannula. General: This is a 73-year-old female lying in bed, in no acute distress. Cardiovascular: S1, S2 heard. Irregularly irregular but no murmurs, gallops, or rubs noted. Respiratory: Minimal wheezing noted in both pulmonary thomas. Definitely better in comparing with admission. Patient is not using any accessory muscles or having work of breathing. Abdomen: Soft, nontender to palpation. Bowel sounds present. No organomegaly. Extremities: No clubbing, cyanosis, or edema. Peripheral pulses present in both legs. Neurological: Patient is alert and oriented x3. Moves 4 extremities. LABORATORY DATA: Pending at the time of my dictation. ASSESSMENT AND PLAN: 1. Atrial fibrillation with rapid ventricular response. The heart rate is definitely much better controlled today. She is receiving Cardizem 180 mg p.o. daily and we need to add Coreg 6.25 mg p.o. twice daily. Because the blood pressure is in the range of 80s and 90s, I prefer to decrease the dose to 3.125 mg p.o. b.i.d. and we will stop losartan today. We will continue to monitor this patient closely. Cardiology has been consulted. We will follow recommendations. 2. Right lower lobe pneumonia. We will continue Levaquin 750 mg IV q.24 hours. Today is #2 of antibiotics. We will continue with the same management. 3. Chronic obstructive pulmonary disease exacerbation. According to the patient she does not remember being diagnosed with COPD. She is receiving breathing treatments with Xopenex for pneumonia. I think I think at this point, we will continue current management and she may need to see a qa consultant as an outpatient to do proper diagnosis of chronic obstructive pulmonary disease. 4. Diabetes mellitus type 2. We will continue with Accu-Cheks before meals and also at bedtime and sliding scale insulin as well. 5. Physical deconditioning. The patient reports feeling very weak. Considering that she lives alone she prefers to go to rehab facility. structural steel worker helper has been notified. 6. Disposition. At this point, we will keep this patient 1 more day in the hospital. From there she should be able to go to rehab facility whenever we have a bed for her. cc: Marquis Calderon MD
[2019-03-28 07:15] LABS: EOS 6 % (1-10); LYMPHS 27 % (21-51); MONO 14 % (1-9); SEGS 51 % (42-75)
[2019-03-28] MEDS: PATIENT'S OWN MED PO SCH (08:31)
[2019-03-28] MEDS: ASPIRIN EC PO SCH (08:41)
[2019-03-28] MEDS: GLUCOPHAGE PO SCH ×2 (08:41→16:41)
[2019-03-28] MEDS: LOPID PO SCH ×2 (08:41→20:24)
[2019-03-28] MEDS: PROTONIX PO SCH (08:41)
[2019-03-28] MEDS: VITAMIN B-12 PO SCH (08:41)
[2019-03-28] MEDS: CARDIZEM CD PO SCH (08:41)
[2019-03-28] MEDS: EFFEXOR XR PO SCH (08:41)
[2019-03-28] MEDS: COREG PO SCH ×2 (08:41→20:24)
[2019-03-28] MEDS: MOBIC PO SCH (08:41)
[2019-03-28] MEDS: TAMIFLU PO SCH ×2 (08:41→20:23)
[2019-03-28] MEDS: VITAMIN D PO SCH (08:41)
[2019-03-28] MEDS: LEVAQUIN 750 MG/D5W 750 MG/150 ML IVPB IV SCH (08:42)
[2019-03-28] MEDS: ROCEPHIN 1 GM in NS 50 ML IV SCH (08:42)
[2019-03-28] MEDS: FIBERCON PO SCH (08:42)
[2019-03-28] MEDS: FISH OIL CONCENTRATE PO SCH (08:42)
[2019-03-28] MEDS: TUSSIONEX LIQUID PO PRN (08:54)
[2019-03-28] MEDS: DESYREL PO SCH (20:24)
[2019-03-28] MEDS: LIPITOR PO SCH (20:24)
[2019-03-28] MEDS: MIRAPEX PO SCH (20:24)
[2019-03-28] MEDS: XARELTO PO SCH (20:24)
[2019-03-29] MEDS: ZOFRAN IV PRN ×3 (03:34→21:14)
[2019-03-29] MEDS: DUONEB (A & A) INH SCH ×6 (04:41→23:43)
--- NOTE | 2019-03-29 05:42 | EKG Report ---
Test Performed on : 03/29/2019 03:49:55 AM Test Reason : change in heart rate/rhythm Blood Pressure : / mmHG Vent. Rate : 114 BPM Atrial Rate : 113 BPM P-R Int : 000 ms QRS Dur : 084 ms QT Int : 326 ms P-R-T Axes : 000 047 079 degrees QTc Int : 449 ms Atrial fibrillation. with rapid ventricular response. Low voltage QRS Abnormal ECG When compared with ECG of 26-MAR-2019 11:57, No significant change was found Confirmed by Jefe THOMAS, Arash Cedeño ([id number]) on 03/30/2019 2:33:38 PM
[2019-03-29 06:24] LABS: BASO# 0.06 X1000 (0.0-0.2); BASO% 0.4 % (0.0-0.8); EOS# 0.33 X1000 (0.0-0.7); EOS% 2.4 % (0.0-10.0); HEMATOCRIT 36.3 % (37.0-47.0); HEMOGLOBIN 10.3 g/dL (12.0-16.0); IMM GRAN# 0.09 X1000 (0.0-0.04); IMM GRAN% 0.7 % (0.0-0.5); LYMPH# 2.09 X1000 (1.2-3.4); LYMPH% 15.5 % (20.5-51.1); MCH 22.2 PG (27-31); MCHC 28.4 g/dL (33-37); MCV 78.2 FL (81-99); MONO# 1.02 X1000 (0.11-0.59); MONO% 7.5 % (1.7-9.3); MPV 9.6 FL (7.4-10.4); NEUT# 9.92 X1000 (1.4-6.5); NEUT% 73.5 % (42.2-75.2); PLT 376 X1000 (130-400); RBC 4.64 XMIL (4.2-5.4); RDW 18.2 % (11.5-14.5); WBC 13.51 X1000 (4.8-10.8)
[2019-03-29 06:33] LABS: AGAP 9; ALBUMIN 3.7 g/dL (3.5-5.0); BUN 17 mg/dL (8-22); CHLORIDE 100 mmol/L (98-107); COSMO 280; CREATININE 0.9 mg/dL (0.5-0.9); ESTIMATED GFR > 60; GLUCOSE 148 mg/dL (70-104); PHOSPHORUS 3.2 mg/dL (2.7-4.5); POTASSIUM 4.5 mmol/L (3.5-5.1); SODIUM 138 mmol/L (136-145); TCO2 29 mmol/L (25-35)
--- NOTE | 2019-03-29 07:42 | PROGRESS NOTE ---
DATE: 03/29/2019 SUBJECTIVE: This morning there have been reports of having nausea and vomiting. She has been okay not requiring any oxygen supplementation upon my examination. OBJECTIVE: Vital Signs: Temperature 97.4 degrees, heart rate 113, respiratory rate 22, blood pressure 110/58, and O2 saturation 92% on 2 L nasal cannula. General: This is a 73-year-old female lying in bed in no acute distress. Cardiovascular: S1, S2 heard. Irregularly irregular and tachycardic. No murmurs, gallops, or rubs noted. Respiratory: There are some coarse breath sounds noted in both pulmonary bases. Patient is not using any accessory muscles or having work of breathing. Abdomen: Soft. Nontender to palpation. Bowel sounds present. No organomegaly. Extremities: No clubbing, cyanosis, or edema. Peripheral pulses present in both legs. Neurological: Patient is alert and oriented x3. Moves all 4 extremities. LABORATORY DATA: Pending at the time of my dictation. ASSESSMENT AND PLAN: 1. Atrial fibrillation with rapid ventricular response. Heart rate has been up and down in the range of 130's. She has been receiving Cardizem 180 mg p.o. daily plus Coreg 3.125 mg p.o. b.i.d. Considering that her heart rate is still elevated, I prefer to go ahead and change the Cardizem CD to 240 mg p.o. daily. We will continue with the same doses of Coreg. Considering that his blood pressure sometimes ranged between 120 systolic blood pressure and 90s systolic blood pressure. We will continue with the same management. 2. Cardiology has been consulted. We will follow recommendations. 3. Right lower lobe pneumonia. We will continue with Levaquin 750 mg IV q.24 hours. Today is day #3 of antibiotics. We will continue with the same management. 4. Chronic obstructive pulmonary disease exacerbation. We will continue with the breathing treatment with Xopenex. The patient may need to be seen by Pulmonology as an outpatient to do a proper diagnosis of chronic obstructive pulmonary disease. 5. Diabetes mellitus type 2. We will continue with sliding scale insulin and Accu-Chek before meals and also at bedtime. 6. Physical deconditioning. The patient reports feeling very weak. Considering that she lives alone, family and patient prefers to go to rehab facility. waterside worker is notified. 7. Disposition: I prefer to keep this patient at least today in the hospital. I think tomorrow she should be much more stable so she can be discharged if we do have a bed in rehab. cc: Marquis Calderon MD
[2019-03-29] MEDS: LEVAQUIN 750 MG/D5W 750 MG/150 ML IVPB IV SCH (08:38)
[2019-03-29] MEDS: ROCEPHIN 1 GM in NS 50 ML IV SCH (08:39)
[2019-03-29] MEDS: LOPID PO SCH ×2 (08:40→21:14)
[2019-03-29] MEDS: PROTONIX PO SCH (08:40)
[2019-03-29] MEDS: CARDIZEM CD PO SCH (08:40)
[2019-03-29] MEDS: ASPIRIN EC PO SCH (08:40)
[2019-03-29] MEDS: FIBERCON PO SCH (08:40)
[2019-03-29] MEDS: COREG PO SCH ×2 (08:40→21:14)
[2019-03-29] MEDS: VITAMIN B-12 PO SCH (08:40)
[2019-03-29] MEDS: VITAMIN D PO SCH (08:40)
[2019-03-29] MEDS: MOBIC PO SCH (08:40)
[2019-03-29] MEDS: TAMIFLU PO SCH ×2 (08:40→21:14)
[2019-03-29] MEDS: EFFEXOR XR PO SCH (08:40)
[2019-03-29] MEDS: FISH OIL CONCENTRATE PO SCH (08:41)
[2019-03-29] MEDS: GLUCOPHAGE PO SCH ×2 (08:41→16:39)
[2019-03-29] MEDS: PATIENT'S OWN MED PO SCH (08:41)
[2019-03-29] MEDS ORDERED: FOSAMAX PO SCH (09:00)
[2019-03-29] MEDS: TUSSIONEX LIQUID PO PRN (10:56)
[2019-03-29] MEDS: TESSALON PO PRN (16:57)
[2019-03-29] MEDS: XARELTO PO SCH (21:14)
[2019-03-29] MEDS: DESYREL PO SCH (21:14)
[2019-03-29] MEDS: MIRAPEX PO SCH (21:14)
[2019-03-29] MEDS: LIPITOR PO SCH (21:15)
[2019-03-30] MEDS: DUONEB (A & A) INH SCH ×3 (03:25→11:52)
[2019-03-30 06:35] LABS: BASO# 0.07 X1000 (0.0-0.2); BASO% 0.6 % (0.0-0.8); EOS# 0.44 X1000 (0.0-0.7); EOS% 3.9 % (0.0-10.0); HEMATOCRIT 35.5 % (37.0-47.0); HEMOGLOBIN 10.1 g/dL (12.0-16.0); IMM GRAN# 0.08 X1000 (0.0-0.04); IMM GRAN% 0.7 % (0.0-0.5); LYMPH# 2.88 X1000 (1.2-3.4); LYMPH% 25.5 % (20.5-51.1); MCH 22.1 PG (27-31); MCHC 28.5 g/dL (33-37); MCV 77.5 FL (81-99); MONO# 1.25 X1000 (0.11-0.59); MONO% 11.1 % (1.7-9.3); MPV 9.9 FL (7.4-10.4); NEUT# 6.58 X1000 (1.4-6.5); NEUT% 58.2 % (42.2-75.2); PLT 389 X1000 (130-400); RBC 4.58 XMIL (4.2-5.4); RDW 18.2 % (11.5-14.5)
[2019-03-30 07:02] LABS: AGAP 11; ALBUMIN 3.6 g/dL (3.5-5.0); BUN 15 mg/dL (8-22); CALCIUM 9.2 mg/dL (8.8-10.2); CHLORIDE 101 mmol/L (98-107); COSMO 281; CREATININE 0.9 mg/dL (0.5-0.9); ESTIMATED GFR > 60; GLUCOSE 114 mg/dL (70-104); PHOSPHORUS 3.8 mg/dL (2.7-4.5); POTASSIUM 4.9 mmol/L (3.5-5.1); SODIUM 140 mmol/L (136-145); TCO2 28 mmol/L (25-35)
[2019-03-30 08:06] VITALS: BP 113/71
[2019-03-30] MEDS: CARDIZEM CD PO SCH (08:16)
[2019-03-30] MEDS: ASPIRIN EC PO SCH (08:16)
[2019-03-30] MEDS: TAMIFLU PO SCH (08:16)
[2019-03-30] MEDS: VITAMIN B-12 PO SCH (08:16)
[2019-03-30] MEDS: GLUCOPHAGE PO SCH (08:16)
[2019-03-30] MEDS: FISH OIL CONCENTRATE PO SCH (08:16)
[2019-03-30] MEDS: COREG PO SCH (08:16)
[2019-03-30] MEDS: PROTONIX PO SCH (08:16)
[2019-03-30] MEDS: LOPID PO SCH (08:16)
[2019-03-30] MEDS: EFFEXOR XR PO SCH (08:16)
[2019-03-30] MEDS: MOBIC PO SCH (08:16)
[2019-03-30] MEDS: FIBERCON PO SCH (08:16)
[2019-03-30] MEDS: VITAMIN D PO SCH (08:16)
[2019-03-30] MEDS: LEVAQUIN 750 MG/D5W 750 MG/150 ML IVPB IV SCH (08:17)
[2019-03-30] MEDS: PATIENT'S OWN MED PO SCH (08:17)
[2019-03-30] MEDS: ROCEPHIN 1 GM in NS 50 ML IV SCH ×2 (08:17→09:15)
--- NOTE | 2019-03-30 09:36 | DISCHARGE SUMMARY ---
ADMISSION DATE: 03/24/2019 DISCHARGE DATE: 03/30/2019 DIAGNOSES: 1. Atrial fibrillation with rapid ventricular response with rate controlled. 2. Right lower lobe pneumonia. 3. Chronic obstructive pulmonary disease exacerbation. 4. Diabetes mellitus type 2. 5. Influenza A positive. CONSULTANTS: Dr. Nishant Hendricks, Cardiology. DIAGNOSTICS: 1. Chest x-ray revealed negative exam. Lungs are well expanded. Heart is not enlarged. Vessels are not distended. There are no infiltrates. 2. CT of the chest: Worsened right lower lobe atelectasis, left lower lobe fibrotic scars. 3. Echocardiogram: Ejection fraction of 62%, with left ventricular systolic function normal. No pericardial effusion. HOSPITAL COURSE: Ms. Mejia presented to the emergency room complaining of shortness of breath that had been present for about 2 days. She had previously, 3 weeks prior, been diagnosed with pneumonia and given antibiotics. She felt better, actually went on a cruise, and then 5 days ago, she started having dyspnea on exertion, yellow productive cough with orthopnea, prompting her coming to the ER for evaluation. She was found to be in atrial fibrillation with rapid ventricular response, to be influenza A positive, and to have right lower lobe pneumonia. She was treated with Tamiflu as well as Levaquin. Thankfully, she has improved. Heart rates increased into the 120s. Cardiology was consulted. She was placed on a beta tata, and heart rates are in the 88 to 90 range now. We did continue her anticoagulation. Blood sugars have been in the 290 range. DISCHARGE PHYSICAL EXAMINATION: Vital Signs: Blood pressure is 113/71, with a heart rate of 90, respirations are 16, temperature 97.7 degrees, with O2 saturations 93% to 98% on 1 L nasal cannula. General: This is a 73-year-old female who is sitting up in a chair in no distress. HEENT: Head is normocephalic, atraumatic. Mucous membranes are moist. Neck: Supple with trachea midline. Cardiovascular: Irregularly irregular rate and rhythm. S1 and S2 appreciated. No murmurs. She has no lower extremity edema. Calves are nontender bilaterally, with peripheral pulses palpable x4 extremities. Pulmonary: Breath sounds are coarse throughout with no increased work of breathing. Chest rises and falls symmetric with respiration. Chest wall is nontender to palpation. Gastrointestinal: Abdomen is soft, nontender, nondistended, with bowel sounds in all 4 quadrants. Neurologic: She is alert and oriented x3. Skin: Warm and dry. DISCHARGE MEDICATIONS: 1. Protonix 40 mg p.o. daily. 2. [facility]ilion-3 four caps p.o. daily. 3. Levaquin 750 mg p.o. daily x7 days. 4. Tussionex liquid 5 mL every 12 hours p.r.n. cough. 5. Cardizem CD 240 mg p.o. daily. 6. Coreg 3.125 p.o. b.i.d. 7. DuoNebs every 4 hours p.r.n. wheezing. 8. Effexor 150 mg p.o. daily. 9. Trazodone 50 mg 1 to 2 p.o. at bedtime p.r.n. insomnia. 10. Xarelto 20 mg p.o. daily. 11. Mirapex 0.25 mg p.o. daily. 12. Metformin 500 mg p.o. b.i.d. 13. Lopid 1200 mg p.o. b.i.d. 14. Vitamin B12, 1000 mcg p.o. daily. 15. Cinnamon bark 500 mg 1 capsule p.o. daily. 16. Vitamin D3 one capsule daily. 17. Lipitor 80 mg 1 p.o. daily. 18. Aspirin 81 mg p.o. daily. 19. Fosamax 1 tablet as directed. FOLLOWUP: 1. Dr. Nishant Hendricks. They need to call the office to schedule an appointment in [address] Vinicio Lyles. Call the office to schedule an appointment in 4 weeks. 3. Primary care physician, Bjorn Babb. They need to schedule an appointment within 1 to 2 weeks after discharge from rehab. DISPOSITION: She is being discharged in stable condition, and transferred to rehab. TIME SPENT: This is a greater than 30-minute discharge. Dictated by RENNY Means for Marquis Calderon MD Addendum: Patient seen and examined by myself. Agree with RENNY note. It reflects my assessment and plan. Patient is being discharged in stable condition. Will be sent to rehab facility and follow up with PCP upon discharge. cc: RENNY Means MD Michael Lunsford [facility]
[2019-03-30] MEDS: TUSSIONEX LIQUID PO PRN (12:59)
== END 2019-03-30 13:25 | DRG 308 ==
LOC: 2N 05:55 → ED 05:55 → OBSVTOIN 08:13
PROVIDERS: ATTEND Internal Medicine